=== PATIENT | male | born 1940 | race Caucasian/White ===

== ENCOUNTER → 2018-12-11 | Outpatient (CLI) | payer OTHER, MEDICARE | LOC: BHFA 13:30 | PROVIDERS: ATTEND Internal Medicine Cardiovascular Disease | DX: I47.1 Supraventricular tachycardia (principal); I49.3 Ventricular premature depolarization; I25.10 Atherosclerotic heart disease of native coronary artery without angina pectoris; R01.1 Cardiac murmur, unspecified | CPT/HCPCS: 78452; 93017; A9500 ==

== ENCOUNTER → 2018-12-19 | Outpatient (CLI) | payer OTHER, MEDICARE | LOC: BHLMT 14:00 | PROVIDERS: ATTEND Internal Medicine Interventional Cardiology | DX: R00.2 Palpitations (principal); I10 Essential (primary) hypertension | CPT/HCPCS: 93306-PO ==

== ENCOUNTER → 2019-01-19 | Outpatient (CLI) | payer OTHER, MEDICARE | LOC: FIMAGING 08:46 | PROVIDERS: ATTEND Internal Medicine | DX: M50.01 Cervical disc disorder with myelopathy, high cervical region (principal); M51.24 Other intervertebral disc displacement, thoracic region; M48.02 Spinal stenosis, cervical region; M48.061 Spinal stenosis, lumbar region without neurogenic claudication; M48.07 Spinal stenosis, lumbosacral region ==